=== PATIENT | female | born 1950 | race African-American/Black ===

== ENCOUNTER 2017-11-04 04:46 | Observation (INO) | payer MEDICARE, SELFPAY ==
[2017-11-04] VITALS (13 sets, daily range): BP systolic 91–150; BP diastolic 60–97; PULSE 64–94; RESP 16–20; TEMP 36.5–36.8; O2SAT 96–99; BMI 31.1; BMI 29.8
--- NOTE | 2017-11-04 04:59 | RAD_ITS ---
STUDY: X-RAY CHEST REASON FOR EXAM: Female, 66 years old. Near syncope. TECHNIQUE: Two AP portable views of the chest. COMPARISON: Prior comparison studies are not available for review at this time. FINDINGS: Cardiac monitoring leads are present. There is mild elevation of the right hemidiaphragm. The lungs are underexpanded otherwise. There is no demonstrated pleural abnormality. Normal size heart. Normal mediastinum and danisha. Normal visualized pulmonary arteries. There is atherosclerotic calcification of the aortic arch with tortuosity. There are diffuse degenerative changes of the visualized thoracic spine. There are degenerative changes of both shoulders. There is no demonstrated abnormality of the visualized soft tissue structures of the upper abdomen. RAD/Chest 1 View (Portable) IMPRESSION: No radiographic evidence of acute cardiopulmonary disease. Electronically Signed: Zoë Maravilla MD at 5:54 EDT , Service support ,
--- NOTE | 2017-11-04 05:00 | CT_ITS ---
STUDY: CT ABDOMEN AND PELVIS WITHOUT CONTRAST REASON FOR EXAM: Female, 66 years old. Abdominal pain. Patient has had previous herniorrhaphies. RADIATION DOSAGE (If Supplied By Facility): CTDIvol = ( 15.28 ) mGy, DLP = ( 782.81 ) mGycm TECHNIQUE: Transaxial images were obtained from the dome of the diaphragm to the symphysis pubis without oral contrast, and without intravenous contrast. Sagittal and coronal images were reconstructed. Individualized dose optimization techniques were used for this CT. COMPARISON: None. FINDINGS: There is mild right basilar subsegmental atelectasis. Lung bases are otherwise clear. There is a calcified lingular pulmonary nodule that may represent a granuloma. No pleural effusions are visualized. The visualized portions of the heart are within normal limits. There is decreased attenuation of the liver consistent with steatosis. There are surgical clips in the gallbladder fossa consistent with a prior cholecystectomy. There are multiple benign calcified granulomata of the spleen. Normal pancreas. Normal bilateral adrenal glands. Multiple parenchymal calcifications and nonobstructing calculi measuring up to 4 mm in size. Small lucency is visible lower pole the right kidney that measures approximately 1.2 cm in size. This is attenuation of approximately 0 Hounsfield units suggesting a simple cyst. The left kidney has a cystic lesion arising from the upper pole left kidney measuring approximately 4.2 cm in greatest dimension. This is attenuation of approximately 4 Hounsfield units suggesting a simple cyst. Multiple surgical sutures are visible in the stomach suggesting patient has had previous gastric bypass surgery. Surgical sutures are visible in the small bowel that may be the result of a Hernan-en-Y. There is no evidence for dilated bowel, ascites or pneumoperitoneum. Appears to be some fecal stasis within small bowel within the left lower quadrant. This is located near the Hernan-en-Y. Stool is visible throughout the colon with scattered diverticula. There are surgical clips in the region of the appendix consistent with a prior appendectomy. Normal abdominal aorta. There is venous distention of the inferior vena cava (IVC). Normal retroperitoneum. Normal urinary bladder. There is absence of the uterus consistent with a prior hysterectomy. There is a large cystic lesion within the lower anterior abdominal wall measuring approximately 7 x 10.5 x 16 cm in size. This has attenuation of approximately 11 Hounsfield units suggesting it is cystic. There is multilevel spondylosis and degenerative disc disease of lower thoracic spine. The imaged lumbar spine has multilevel degenerative arthropathy is severe at L4-5 and L5-S1. CT/Abdomen/Pelvis without Cont IMPRESSION: 1. No CT evidence of acute intra-abdominal disease. 2. Large cystic lesion within the anterior abdominal wall may represent a large seroma. Associated infection is not excluded. 3. Status post gastric bypass surgery and Hernan-en-Y with evidence for fecal stasis within the Hernan-en-Y. 4. Cholecystectomy. 5. Renal cysts and nonobstructing right-sided renal calculi. 6. Cholecystectomy. Electronically Signed: Zoë Maravilla MD at 6:06 EDT , Service support ,
--- NOTE | 2017-11-04 05:00 | EKG12_ITS ---
Test Reason : Blood Pressure : / mmHG Vent. Rate : 087 BPM Atrial Rate : 087 BPM P-R Int : 240 ms QRS Dur : 090 ms QT Int : 364 ms P-R-T Axes : 037 -22 011 degrees QTc Int : 438 ms Sinus rhythm with 1st degree A-V block Voltage criteria for left ventricular hypertrophy Abnormal ECG Confirmed by LISA STACK, MARY ([id number]), editor book KYLER MONK ([id number]) on 11/06/2017 3:28:02 PM Referred By: KADEN Confirmed By:MARY GONZALEZ MD
--- NOTE | 2017-11-04 05:03 | ED.DCSUM_ITS ---
- ER Visit Summary Date of Service: 11/04/17 Chief Complaint: Near syncope History of Present Illness: The patient is a 66 F presenting with lightheadedness and near syncope. States this occurred last week and then again this morning. She did not completely pass out. She denies chest pain or shortness of breath. She complains of bilateral lower extremity swelling which has been ongoing for several months and has been progressively worsening. She has doubled her Lasix dose and this has not improved her symptoms. She also complains of abdominal pain. She has had previous hernia repairs. She also complains of muscle cramping in her lower legs. Physical Examination: Vitals are stable. Patient is afebrile. Alert no acute distress. HEENT exam is unremarkable. Neck is supple. Lungs are clear and equal bilaterally. Heart is regular rate and rhythm. Abdomen is soft mild diffuse tenderness Extremities symmetric lower extremity edema Skin is warm and dry. No focal neurologic deficit. Remainder of exam is unremarkable. Emergency Department Course and Treatment: EKG is sinus rate of 87. Chest x- ray shows no acute process. CBC, chemistries unremarkable. Troponin is negative. CT abdomen shows no CT evidence of acute intra-abdominal disease. Large cystic lesion within the anterior abdominal wall may represent a large seroma. Associated infection is not excluded. Status post gastric bypass surgery and Hernan-en-Y with evidence for fecal stasis within the Hernan-en-Y. Cholecystectomy. Renal cysts and nonobstructing right-sided renal calculi. Cholecystectomy. She was given Lasix IV. She continues to feel lightheaded. Will discuss with the hospitalist for observation. Disposition: Observation Impression: Near syncope, peripheral edema, abdominal wall cystic lesion This note was generated with [employer] dictation software. It may contain incorrect words, spelling, and punctuation that were not noted in review of the chart prior to signing ED Disposition - Plan for ED Patient: Chief Complaint: Syncope Referrals: Fabi Salter MD [Primary Care Provider] -
--- NOTE | 2017-11-04 05:10 | NURSING ---
NO OLD EKG TO OBTAIN
[2017-11-04 05:33] LABS: Absolute Lymphocyte Count 0.91 X10^3/ul (0.83-4.51); Absolute Neutrophil Count 4.3 X10^3/uL (2.0-7.7); Basophil# 0.01 X10^3/uL; Basophil% 0.2 % (0-1); Eosinophil# 0.03 X10^3/uL; Eosinophils% 0.5 % (0-5); Hemoglobin 12.8 g/dl (12.0-15.0); Lymphocyte # 0.91 X10^3/ul (4.0); Lymphocyte % 16.3 % (19-41); Mean Corp Hgb Conc 31.2 g/gl (32-36); Mean Corpuscular Hgb 30.3 pg (27.0-32.0); Mean Corpuscular Volume 97.2 fL (81-99); Mean Platelet Vol. 9.7 fl (6.2-12.0); Monocyte# 0.35 X10^3/uL; Monocyte% 6.3 % (0-10); Neutrophil # 4.27 X10^3/uL (2.7-7.7); Neutrophil % 76.7 % (47-70); Platelet Count 208 K/mm3 (150-450); RBC Distribution Width CV 15.8 % (11.6-14.6); RBC Distribution Width SD 56.1 fl (35.1-43.9); Red Blood Count 4.22 M/mm3 (4.2-5.4); White Blood Count 5.6 K/mm3 (4.4-11.0)
[2017-11-04 05:39] LABS: POSITIVE COUNT NO; POSITIVE DIFFERENTIAL NO; POSITIVE MORPHOLOGY NO
[2017-11-04 05:40] LABS: Anion Gap 8 (5-15); BUN 14 mg/dL (7-18); Calcium,Total 8.2 mg/dL (8.5-10.1); Chloride 110 mmol/L (98-107); Creatinine, Serum 0.74 mg/dL (0.55-1.02); EST Glomerular Filtration Rate 84 mL/min (>60); Est Glom Filt Rate - Afr Amer 101 mL/min (>60); Estimated Creatinine Clearance 51.81 ml/min; Glucose 90 mg/dL (74-106); Potassium 3.7 mmol/L (3.5-5.1); Sodium Level 144 mmol/L (136-145)
[2017-11-04] MEDS: Furosemide 40 MG/4 ML Vial IV (06:37)
--- NOTE | 2017-11-04 07:12 | HP.PCM_ITS ---
Problem List (1) Swelling of both lower extremities Status: Acute (2) Near syncope Status: Acute (3) Chest pain Status: Acute Qualifiers: Chest pain type: chest pain due to myocardial ischemia Ischemic chest pain type: stable angina pectoris Qualified Code(s): I20.8 - Other forms of angina pectoris History of Present Illness Date of Admission: 11/04/17 Chief Complaint: near syncope. chest pain. lower extremity edema The patient is a 66 year old F with a past medical history of diabetes, hypertension, chronic bilateral lower extremity edema, obesity status post gastric bypass surgery with Hernan-en-Y. She was admitted on 11/04/2017 with a complaint of near syncope. According to patient, she got up to use the bathroom and suddenly started feeling dizzy and lightheaded and so she had to sit down. It improved a bit but recurred this morning of admission and so she decided coming to the ED. She has been on Lasix for her chronic lower extremity edema. She noticed that edema had worsened recently and so she was told by her nurse practitioner to take a double dose of her Lasix every day which has been doing for the past week. She subsequently noticed that she started having near syncope and today was a second episode of near syncope in a week. She did she also complained of pressure and throbbing-like chest pain which has been going on for about a week and a half and is worsened by exertion when she works in her yard. She has had such chest pain in the past and states that she had a stress test but was told that it was negative. She denies any shortness of breath, any palpitations, any diaphoresis, and denies any falls at home. Denies any history of recent long distance travel as well. Review of systems otherwise negative. She was seen in the ED where vitals were.= Temperature of 97.9 Fahrenheit, blood pressure of 1 05/05/1976, pulse rate of 18 respiratory rate of 18 and she was saturating at 97% on room air. EKG shows sinus rhythm with heart rate of 87. Chest x-ray showed no acute process and labs were unremarkable. Troponin was negative. Been admitted to be worked up for near syncope. [] Past Medical History Allergies No Known Allergies Allergy (Verified 07/22/16 15:38) Home Medications: Ambulatory Orders Medication Instructions Recorded Cyanocobalamin (Vitamin B-12) 1,000 mcg PO DAILY 07/22/16 [Vitamin B-12] Ergocalciferol [Vitamin D] 50,000 units PO SA 07/22/16 Ferrous Sulfate [Iron] 325 mg PO DAILY 07/22/16 Furosemide [Lasix] 20 mg PO DAILY PRN PRN 07/22/16 Hydrochlorothiazide 25 mg PO DAILY 07/22/16 Latanoprost 0.005% [Xalatan 1 drop EACH EYE DAILY 07/22/16 Opthalmic] Meloxicam [Mobic] 15 mg PO DAILY 07/22/16 Metformin HCl [Glucophage] 500 mg PO BID 07/22/16 Nystatin Powder [Mycostatin Powder] 1 applic TOPICAL BID PRN PRN 07/22/16 Ondansetron [Zofran Odt] 4 mg PO Q8H PRN PRN #10 tablet 07/22/16 Potassium Chloride 20 meq PO DAILY 07/22/16 Terbinafine HCl [Lamisil] 250 mg PO DAILY 07/22/16 Docusate Sodium [Colace] 100 mg PO DAILY 11/04/17 Tizanidine HCl [Zanaflex] 4 mg PO Q8H 11/04/17 Surgical History: cholecystectomy, - - bariatric surgery (Hernan-en-Y) Psychiatric History: No pertinent psych hx Lives: Alone Smoking Status: Never smoker Alcohol: Rare Drugs: None Review of Systems Constitutional: Denies: Chills, Fever, Weight Change Eyes: Denies: Blurred vision HEENT: Denies: Head Aches, Sinus Congestion, Sinus Drainage Cardiovascular: Reports: Chest Pain - left sided, throbbing, aggravated by exertion Respiratory: Denies: Cough, Hemoptysis, Pleuritic Pain, Shortness of breath at rest, Sputum production Gastrointestinal: Denies: Abdominal Pain, Nausea, Vomiting Genitourinary: Denies: Dysuria Musculoskeletal: Reports: - - lower extremity swelling bilaterally. Denies: Joint Pain, Joint Tenderness Skin: Denies: Rash, Wounds Neurological: Denies: Numbness, Tingling, Focal weakness Psychiatric: Denies: Anxiety, Depression, Homicidal Ideations, Suicidal Ideations Hematologic/ Lymphatic: Denies: Adenopathy VTE Information - Inpt Only VTE Present on Admission: No VTE Mechan Device Prophylaxis: Knee High SOLEDAD Hose VTE Pharm Prophylaxis ordered?: Yes Patient Problems: Active and Suspected Problems Swelling of both lower extremities (Acute) Near syncope (Acute) Chest pain (Acute) - Physical Exam General: Alert, Oriented x3, Cooperative, No apparent distress HEENT: Atraumatic, PERRLA, EOMI, Normocephalic Oral: Moist Mucosa Neck: Supple, No JVD, Negative Carotid Bruits Lungs: Clear to auscultation, Normal air movement, No rhonchi, No wheeze, No rales Cardiovascular: Regular rate, Regular Rhythm, Normal S1, Normal S2, No murmurs Abdomen: Bowel Sounds Present, Soft, Non Tender, No Hepato-splenomegaly, - - has large cystic mass in the infraumbilical region;says it appeared after her gastric bypass surgery Extremities: No clubbing, No cyanosis, - - bilateral pitting edema 3+ up to the knees. No tenderness or erythema noted. Skin: No rashes, No breakdown Musculoskeletal: No Tenderness to Palpation of Joints or Extremities Lymphatic: No Cervical, Supraclavicular, or Inguinal Adenopathy Neurological: Cranial nerves II-XII grossly intact Psych/Mental Status: Normal Affect, Appropriate, Alert and oriented to time, place, person, mood and affect Vital Signs Temp Pulse Resp BP Pulse Ox 97.9 F 68 20 H 110/87 H 99 11/04/17 04:47 11/04/17 06:37 11/04/17 06:37 11/04/17 06:37 11/04/17 06:37 Oxygen Delivery Method Room Air Weight: 192 lb 10.944 oz Body Mass Index (BMI) 31.1 Laboratory Tests Past 24 Hrs 11/04/17 11/04/17 05:15 05:15 WBC 5.6 RBC 4.22 Hgb 12.8 Hct 41.0 MCV 97.2 MCH 30.3 MCHC 31.2 L RDW 15.8 H RDW Differential 56.1 H Plt Count 208 MPV 9.7 Immature Gran % (Auto) 0.000 Neut % (Auto) 76.7 H Lymph % (Auto) 16.3 L [place] % (Auto) 6.3 Eos % (Auto) 0.5 Baso % (Auto) 0.2 Absolute Neuts (auto) 4.3 Absolute Lymphs (auto) 0.91 Total Counted Not Reportable Sodium 144 Potassium 3.7 Chloride 110 H Carbon Dioxide 26.0 Anion Gap 8 BUN 14 Creatinine 0.74 Estim Creat Clear Calc 51.81 Est GFR (MDRD) Af Amer 101 Est GFR (MDRD) Non-Af 84 BUN/Creatinine Ratio 19.0 Glucose 90 Calcium 8.2 L Troponin I < 0.015 Diagnostic Data Chest X-Ray 11/04/17 04:59 IMPRESSION: No radiographic evidence of acute cardiopulmonary disease. Electronically Signed: Zoë Maravilla MD at 5:54 EDT , Service support , Abdomen/Pelvis CT 11/04/17 05:00 IMPRESSION: 1. No CT evidence of acute intra-abdominal disease. 2. Large cystic lesion within the anterior abdominal wall may represent a large seroma. Associated infection is not excluded. 3. Status post gastric bypass surgery and Hernan-en-Y with evidence for fecal stasis within the Hernan-en-Y. 4. Cholecystectomy. 5. Renal cysts and nonobstructing right-sided renal calculi. 6. Cholecystectomy. Electronically Signed: Zoë Maravilla MD at 6:06 EDT , Service support , Assessment/Plan All Active Problems Swelling of both lower extremities (Acute) Near syncope (Acute) Chest pain (Acute) 66-year-old female presenting with a complaint of near syncope and chest pain 1. Near syncope, due to probable orthostatic hypotension * has tonic bilateral lower extremity pitting edema. Was told to the dosage of Lasix by her primary care nurse practitioner. Started feeling lightheaded and dizzy and had 2 episodes of near syncope over the last week because of that. * Vitals stable. Denies any diaphoresis or palpitations. * Will admit to PCU with telemetry. * Also unremarkable and EKG showed sinus rhythm with no acute ST changes. Initial troponin was negative. * X-ray showed no acute pulmonary process. * Received 1 dose of Lasix in the ED. * Check orthostatics. * Will give gentle diuresis with IV Lasix. * Fall Precautions. * 2.Exertional Chest pain due to probable angina * says she has had left sided chest pain which is worsened by workin in her yard * Has no history of NH though she states she has had similar chest pain in the past and had stress test done which was negative several years ago. * Has a history of diabetes which makes her moderate to high risk for CAD. * Showed troponin was negative. We will cycle 1 more time. * Will get a nuclear stress test and echocardiogram * will start aspirin 81 mg daily. * 3. Diabetes mellitus: * On metformin 500 mg twice daily. Insulin sliding scale. * 4. Chronic bilateral LE pitting pedal edema * on lasix 20mg daily prn. Has increased her dosage, as mentioned in 1. * will continue PO lasix 20mg daily * SOLEDAD hose to help with edema * keep legs elevated * 5. HTN: on hydrochlorthiazide and lasix. 6. DVT Prophylaxis: Lovenox This note was generated with [employer] dictation software. It may contain incorrect words, spelling, and punctuation that were not noted in checking the note before signing. Code Visit Inpatient E&M: 96680 Init Hosp L3
[2017-11-04] MEDS: Docusate Sodium 100 MG Capsule PO (12:47)
[2017-11-04] MEDS: hydroCHLOROthiazide 25 MG Tablet PO (12:48)
[2017-11-04] MEDS: Ferrous Sulfate 325 MG Tablet PO (12:48)
[2017-11-04] MEDS: Cyanocobalamin 500 MCG Tablet 1000 MCG PO (12:49)
[2017-11-04] MEDS: Meloxicam 15 MG Tablet PO (12:49)
[2017-11-04] MEDS: tiZANidine HCl 2 MG Tablet 4 MG PO ×2 (12:50→21:59)
[2017-11-04] MEDS: Latanoprost 0.005% 1 Bottle 1 DRP EACH EYE (12:50)
--- NOTE | 2017-11-04 15:04 | CM.UR ---
Addendum entered by Jenny Valiente 11/04/17 15:10: Patient does have CPAP at home however doesn't wear it any longer. Instructed on the importance of wearing cpap nightly. Instructed how MIMI can cause additional stress on heart. States hasn't worn in many years but does still have it. Suggested she talk to her PCP about getting another titration and ensure the settings are still appropriate for her. Also doesn't currently have a sound tester for about 20 years. Hadn't needed one and hers has since . Keshia Valiente RN, CCM. Original Note: Met face to face with the patient. No needs anticipated at this time but case mgmt will remain available should any needs arise. Keshia Valiente RN, CCM.
[2017-11-04 16:45] LABS: Bedside Glucose 92 mg/dL (70-110)
--- NOTE | 2017-11-04 19:20 | STRESSREP ---
Stress Test Report Pharmacologic myocardial perfusion stress test. 66-year-old lady with a history of chest discomfort. Stress protocol: Resting EKG demonstrates normal sinus rhythm with a rate of 75 bpm normal intervals and noted resting blood pressure is 140/82 mmHg. 0.4 mg of regadenoson was infused per usual protocol followed by rapid intravenous saline flush injection. Continuous EKG monitoring was performed. The patient maintained sinus rhythm throughout the recording. The maximum heart rate attained was 98 beats minute which was 63% of maximum predicted heart rate the maximum workload attained was 1 metabolic equivalent. At rest there were no ST or T-wave changes noted suggest abnormal flow reserve at peak infusion no ST or T-wave changes were noted suggest abnormal flow reserve. No clinical angina was noted. Myocardial perfusion protocol. 13.6 mCi of technetium 99m sestamibi was injected at rest. 0.4 mg of regadenoson was infused per usual protocol. Peak infusion 39.7 mCi of technetium 99m sestamibi was injected stress images were obtained stress and rest images were reconstructed and compared in the short axis vertical long and horizontal long axis. Gated images were also obtained. Perfusion SPECT analysis. Review of the stress images demonstrate normal uptake of tracer noted in all areas of the myocardium there was a small portion of the anterior apical wall with mildly reduced perfusion. This was present on the stress and rest images to a similar extent no reversibility was noted suggest ischemia or previous infarct cannot be completely excluded. Gated SPECT analysis: The gated ejection fraction is noted to be 66%. Conclusion: Normal pharmacologic myocardial perfusion stress test. Previous small anterior apical infarct cannot be completely excluded.
[2017-11-04] MEDS: 0.9% NaCl Peripheral Flush Adult/Peds IV (21:59)
[2017-11-04 22:21] LABS: Bedside Glucose 71 mg/dL (70-110)
[2017-11-05 03:00] VITALS: PULSE 78
[2017-11-05 03:50] VITALS: BP 104/75; BP 105/71; BP 114/69; PULSE 74; PULSE 76; RESP 16; TEMP 36.7; O2SAT 96
[2017-11-05] MEDS: tiZANidine HCl 2 MG Tablet 4 MG PO (05:22)
[2017-11-05 06:45] LABS: Absolute Lymphocyte Count 0.93 X10^3/ul (0.83-4.51); Basophil# 0.01 X10^3/uL; Basophil% 0.3 % (0-1); Eosinophil# 0.03 X10^3/uL; Eosinophils% 0.9 % (0-5); Hematocrit 36.1 % (37-47); Hemoglobin 11.6 g/dl (12.0-15.0); Lymphocyte # 0.93 X10^3/ul (4.0); Lymphocyte % 29.2 % (19-41); Mean Corp Hgb Conc 32.1 g/gl (32-36); Mean Corpuscular Hgb 30.5 pg (27.0-32.0); Mean Platelet Vol. 9.9 fl (6.2-12.0); Monocyte# 0.23 X10^3/uL; Monocyte% 7.2 % (0-10); Neutrophil # 1.99 X10^3/uL (2.7-7.7); Neutrophil % 62.4 % (47-70); Platelet Count 191 K/mm3 (150-450); RBC Distribution Width CV 15.8 % (11.6-14.6); RBC Distribution Width SD 54.9 fl (35.1-43.9); White Blood Count 3.2 K/mm3 (4.4-11.0)
[2017-11-05 06:45] LABS: Bedside Glucose 76 mg/dL (70-110)
[2017-11-05 06:51] LABS: Bedside Glucose 118 mg/dL (70-110)
[2017-11-05 07:00] VITALS: PULSE 79
[2017-11-05 07:04] LABS: Anion Gap 6 (5-15); BUN 14 mg/dL (7-18); BUN/Creat Ratio 21.1 RATIO (10-20); Calcium,Total 8.2 mg/dL (8.5-10.1); Chloride 108 mmol/L (98-107); Creatinine, Serum 0.66 mg/dL (0.55-1.02); EST Glomerular Filtration Rate 94 mL/min (>60); Est Glom Filt Rate - Afr Amer 114 mL/min (>60); Estimated Creatinine Clearance 51.81 ml/min; Glucose 121 mg/dL (74-106); Sodium Level 140 mmol/L (136-145)
[2017-11-05 07:05] LABS: POSITIVE COUNT NO; POSITIVE DIFFERENTIAL NO; POSITIVE MORPHOLOGY NO
[2017-11-05 07:06] VITALS: O2SAT 92
[2017-11-05] MEDS: Ferrous Sulfate 325 MG Tablet PO (08:53)
[2017-11-05] MEDS: Aspirin 81 MG TAB.CHEW PO (08:54)
[2017-11-05 09:50] VITALS: BP 100/63; PULSE 71; RESP 18; TEMP 36.7; O2SAT 94
[2017-11-05] MEDS: Enoxaparin 40 MG/0.4 ML Syringe SC (10:31)
[2017-11-05] MEDS: hydroCHLOROthiazide 25 MG Tablet PO (10:31)
[2017-11-05] MEDS: Docusate Sodium 100 MG Capsule PO (10:31)
[2017-11-05] MEDS: Latanoprost 0.005% 1 Bottle 1 DRP EACH EYE (10:32)
[2017-11-05] MEDS: Cyanocobalamin 500 MCG Tablet 1000 MCG PO (10:32)
[2017-11-05] MEDS: Meloxicam 15 MG Tablet PO (10:32)
--- NOTE | 2017-11-05 11:16 | PCM.DC ---
- Discharge Diagnoses Current Active Problems: Current Active and Chronic Problems Swelling of both lower extremities (Acute) Near syncope (Acute) Chest pain (Acute) You will use the following diet at home:: Calorie/Carbohydrate Controlled (specify 1200, 1400, etc) Your food should be the consistency of: Regular Your liquids should be the consistency of: Regular/Thin Discharge Activity: Return to Normal Activity May resume sexual activity in: No Restrictions Weight Bearing Status: Weight bearing as tolerated Call your doctor if you observe: Dizziness, Fainting spells Instructions: ED Near Syncope Unkn, ED Near Syncope Vasovagal, ED Leg Swelling Bilateral Additional Instructions: To do 2D echo on outpatient basis Allergies/Adverse Reactions: Allergies No Known Allergies Allergy (Verified 07/22/16 15:38) Medications to take at Discharge Cyanocobalamin (Vitamin B-12) [Vitamin B-12] 1,000 mcg PO DAILY 07/22/16 Ergocalciferol [Vitamin D] 50,000 units PO SA 07/22/16 Ferrous Sulfate [Iron] 325 mg PO DAILY 07/22/16 Furosemide [Lasix] 20 mg PO DAILY PRN PRN 07/22/16 Hydrochlorothiazide 25 mg PO DAILY 07/22/16 Latanoprost 0.005% [Xalatan Opthalmic] 1 drop EACH EYE DAILY 07/22/16 Meloxicam [Mobic] 15 mg PO DAILY 07/22/16 Metformin HCl [Glucophage] 500 mg PO BID 07/22/16 Nystatin Powder [Mycostatin Powder] 1 applic TOPICAL BID PRN PRN 07/22/16 Ondansetron [Zofran Odt] 4 mg PO Q8H PRN PRN #10 tablet 07/22/16 Potassium Chloride 20 meq PO DAILY 07/22/16 Terbinafine HCl [Lamisil] 250 mg PO DAILY 07/22/16 Docusate Sodium [Colace] 100 mg PO DAILY 11/04/17 Tizanidine HCl [Zanaflex] 4 mg PO Q8H 11/04/17 Aspirin [Aspirin, Baby] 81 mg PO DAILY@0800 #30 tab.chew 11/05/17 The following prescriptions were given: Aspirin [Aspirin, Baby] 81 mg PO DAILY@0800 #30 tab.chew Primary Care Physician: Fabi Salter MD [Primary Care Provider] - Please follow up with your Primary Care Physician in: one week Test Results: Test results from this visit will be discussed in further detail at your follow-up appointment, if applicable. Proposed Discharge Date: 11/05/17
--- NOTE | 2017-11-05 11:20 | DCINST_ITS ---
- Discharge Diagnoses Current Active Problems: Current Active and Chronic Problems Swelling of both lower extremities (Acute) Near syncope (Acute) Chest pain (Acute) You will use the following diet at home:: Calorie/Carbohydrate Controlled ( specify 1200, 1400, etc) Your food should be the consistency of: Regular Your liquids should be the consistency of: Regular/Thin Discharge Activity: Return to Normal Activity May resume sexual activity in: No Restrictions Weight Bearing Status: Weight bearing as tolerated Call your doctor if you observe: Dizziness, Fainting spells Instructions: ED Near Syncope Unkn, ED Near Syncope Vasovagal, ED Leg Swelling Bilateral Additional Instructions: To do 2D echo on outpatient basis Allergies/Adverse Reactions: Allergies No Known Allergies Allergy (Verified 07/22/16 15:38) Medications to take at Discharge Cyanocobalamin (Vitamin B-12) [Vitamin B-12] 1,000 mcg PO DAILY 07/22/16 Ergocalciferol [Vitamin D] 50,000 units PO SA 07/22/16 Ferrous Sulfate [Iron] 325 mg PO DAILY 07/22/16 Furosemide [Lasix] 20 mg PO DAILY PRN PRN 07/22/16 Hydrochlorothiazide 25 mg PO DAILY 07/22/16 Latanoprost 0.005% [Xalatan Opthalmic] 1 drop EACH EYE DAILY 07/22/16 Meloxicam [Mobic] 15 mg PO DAILY 07/22/16 Metformin HCl [Glucophage] 500 mg PO BID 07/22/16 Nystatin Powder [Mycostatin Powder] 1 applic TOPICAL BID PRN PRN 07/22/16 Ondansetron [Zofran Odt] 4 mg PO Q8H PRN PRN #10 tablet 07/22/16 Potassium Chloride 20 meq PO DAILY 07/22/16 Terbinafine HCl [Lamisil] 250 mg PO DAILY 07/22/16 Docusate Sodium [Colace] 100 mg PO DAILY 11/04/17 Tizanidine HCl [Zanaflex] 4 mg PO Q8H 11/04/17 Aspirin [Aspirin, Baby] 81 mg PO DAILY@0800 #30 tab.chew 11/05/17 The following prescriptions were given: Aspirin [Aspirin, Baby] 81 mg PO DAILY@0800 #30 tab.chew Primary Care Physician: Fabi Slater MD [Primary Care Provider] - Please follow up with your Primary Care Physician in: one week Test Results: Test results from this visit will be discussed in further detail at your follow- up appointment, if applicable. Proposed Discharge Date: 11/05/17
--- NOTE | 2017-11-05 11:21 | PCM.DC.SUM ---
Discharge Date and Diagnosis - Problem List Patient Problems: Active and Suspected Problems Swelling of both lower extremities (Acute) Near syncope (Acute) Chest pain (Acute) Date of Admission: 11/04/17 Date of Discharge: 11/05/17 - Primary Discharge Diagnosis Active and Suspected Problems Swelling of both lower extremities (Acute) Near syncope (Acute) Chest pain (Acute) Hospital Course and Treatment Imaging Results: Diagnostic Data Chest X-Ray 11/04/17 04:59 IMPRESSION: No radiographic evidence of acute cardiopulmonary disease. Electronically Signed: Zoë Maravilla MD at 5:54 EDT , Service support , Abdomen/Pelvis CT 11/04/17 05:00 IMPRESSION: 1. No CT evidence of acute intra-abdominal disease. 2. Large cystic lesion within the anterior abdominal wall may represent a large seroma. Associated infection is not excluded. 3. Status post gastric bypass surgery and Hernan-en-Y with evidence for fecal stasis within the Hernan-en-Y. 4. Cholecystectomy. 5. Renal cysts and nonobstructing right-sided renal calculi. 6. Cholecystectomy. Electronically Signed: Zoë Maravilla MD at 6:06 EDT , Service support , Laboratory Tests 11/04/17 11/04/17 11/04/17 05:15 05:15 14:15 WBC 5.6 RBC 4.22 Hgb 12.8 Hct 41.0 MCV 97.2 MCH 30.3 MCHC 31.2 L RDW 15.8 H RDW Differential 56.1 H Plt Count 208 MPV 9.7 Immature Gran % (Auto) 0.000 Neut % (Auto) 76.7 H Lymph % (Auto) 16.3 L Harrison % (Auto) 6.3 Eos % (Auto) 0.5 Baso % (Auto) 0.2 Absolute Neuts (auto) 4.3 Absolute Lymphs (auto) 0.91 Total Counted Not Reportable Sodium 144 Potassium 3.7 Chloride 110 H Carbon Dioxide 26.0 Anion Gap 8 BUN 14 Creatinine 0.74 Estim Creat Clear Calc 51.81 Est GFR (MDRD) Af Amer 101 Est GFR (MDRD) Non-Af 84 BUN/Creatinine Ratio 19.0 Glucose 90 Calcium 8.2 L Troponin I < 0.015 < 0.015 POC Glucose 11/04/17 11/04/17 11/05/17 16:26 21:54 03:49 WBC RBC Hgb Hct MCV MCH MCHC RDW RDW Differential Plt Count MPV Immature Gran % (Auto) Neut % (Auto) Lymph % (Auto) Harrison % (Auto) Eos % (Auto) Baso % (Auto) Absolute Neuts (auto) Absolute Lymphs (auto) Total Counted Sodium Potassium Chloride Carbon Dioxide Anion Gap BUN Creatinine Estim Creat Clear Calc Est GFR (MDRD) Af Amer Est GFR (MDRD) Non-Af BUN/Creatinine Ratio Glucose Calcium Troponin I POC Glucose 92 71 76 11/05/17 11/05/17 11/05/17 06:28 06:28 06:44 WBC 3.2 L RBC 3.80 L Hgb 11.6 L Hct 36.1 L MCV 95.0 MCH 30.5 MCHC 32.1 RDW 15.8 H RDW Differential 54.9 H Plt Count 191 MPV 9.9 Immature Gran % (Auto) 0.000 Neut % (Auto) 62.4 Lymph % (Auto) 29.2 Harrison % (Auto) 7.2 Eos % (Auto) 0.9 Baso % (Auto) 0.3 Absolute Neuts (auto) 2.0 Absolute Lymphs (auto) 0.93 Total Counted Not Reportable Sodium 140 Potassium 4.0 Chloride 108 H Carbon Dioxide 26.0 Anion Gap 6 BUN 14 Creatinine 0.66 Estim Creat Clear Calc 51.81 Est GFR (MDRD) Af Amer 114 Est GFR (MDRD) Non-Af 94 BUN/Creatinine Ratio 21.1 H Glucose 121 H Calcium 8.2 L Troponin I POC Glucose 118 H Operations: None Procedures: Nuclear stress test Summary of Care Provided: The patient is a 66 year old F with a past medical history of diabetes, hypertension, chronic bilateral lower extremity edema, obesity status post gastric bypass surgery with Hernan-en-Y. She was admitted on 11/04/2017 with a complaint of near syncope. According to patient, she got up to use the bathroom and suddenly started feeling dizzy and lightheaded and so she had to sit down. She has been on Lasix for her chronic lower extremity edema. She noticed that edema had worsened recently and so she was told by her nurse practitioner to take a double dose of her Lasix every day which has been doing for the past week. near suncope started after she doubled her dose of lasix. She did she also complained of pressure and throbbing-like chest pain which has been going on for about a week and a half and is worsened by exertion when she works in her yard. She has had such chest pain in the past and states that she had a stress test but was told that it was negative. She denies any shortness of breath, any palpitations, any diaphoresis, and denies any falls at home. Denies any history of recent long distance travel as well. Review of systems otherwise negative. She was seen in the ED where vitals were.Temperature of 97.9 Fahrenheit, blood pressure of 05/05/1976, pulse rate of 18 respiratory rate of 18 and she was saturating at 97% on room air. EKG shows sinus rhythm with heart rate of [address] changes. Chest x-ray showed no acute process and labs were unremarkable. Troponins x 2 were negative. She was admitted and managed for near syncope and atypical chest pain. Stress test done was negative. She was supposed to have a 2D echo, but didnt want to stay till Monday for it. She remained stable, and was dced home on 11/05/17. She was counselled strongly to continue taking her regular lasix dose and not increase it arbitrarily. She was prescribed TAY stockings to help with edema. She is to follow up with her PCP. Patient seen and examined this morning. She felt well and had no complaitns. She was able to ambulate on her own without any dizziness or any chest pain. Review of systems was othewise negative. o/E: well looking female, alert and oriented x 2 HEENT: PEERLA, oral mucosa moist, EOMI Lungs: clear to auscultation CVS: normal S1/S2, no murmurs Abdomen; soft, nontender, no organomegaly, cystic mass in lower abdomen Extremities: bilateral 1+ pitting pedal edema Neuro: cranial nerves II-Xii intact, normal power and tone in all extremities. MSk: no tenderness or swelling Skin: no rash or ulcers Assessment and plan: Nearsyncope: resolved. Atypical chest pain: resolved. Stress test negative. To have 2D echo on outpatient basis. Bilateral LE edema: TAY hose stockings. continue PO lasix 20mg daily. To follow up with PCP in one week. Discharge Diet: Low fat/ Low Cholesterol Discharge Activity: Return to Normal Activity May resume sexual activity in: No Restrictions Weight Bearing Status: Weight bearing as tolerated Call your doctor if you observe: Dizziness, Fainting spells Home Medications: Medications to take at Discharge Cyanocobalamin (Vitamin B-12) [Vitamin B-12] 1,000 mcg PO DAILY 07/22/16 Ergocalciferol [Vitamin D] 50,000 units PO SA 07/22/16 Ferrous Sulfate [Iron] 325 mg PO DAILY 07/22/16 Furosemide [Lasix] 20 mg PO DAILY PRN PRN 07/22/16 Hydrochlorothiazide 25 mg PO DAILY 07/22/16 Latanoprost 0.005% [Xalatan Opthalmic] 1 drop EACH EYE DAILY 07/22/16 Meloxicam [Mobic] 15 mg PO DAILY 07/22/16 Metformin HCl [Glucophage] 500 mg PO BID 07/22/16 Nystatin Powder [Mycostatin Powder] 1 applic TOPICAL BID PRN PRN 07/22/16 Ondansetron [Zofran Odt] 4 mg PO Q8H PRN PRN #10 tablet 07/22/16 Potassium Chloride 20 meq PO DAILY 07/22/16 Terbinafine HCl [Lamisil] 250 mg PO DAILY 07/22/16 Docusate Sodium [Colace] 100 mg PO DAILY 11/04/17 Tizanidine HCl [Zanaflex] 4 mg PO Q8H 11/04/17 Aspirin [Aspirin, Baby] 81 mg PO DAILY@0800 #30 tab.chew 11/05/17 Following Prescrptions Were Given to Patient: Aspirin [Aspirin, Baby] 81 mg PO DAILY@0800 #30 tab.chew Other Amb Orders: Knee High Tay Hose Location: None Selected Primary Care Physician: Fabi Salter MD [Primary Care Provider] - Please follow up with your Primary Care Physician in: one week Patient Instructions: ED Leg Swelling Bilateral, ED Near Syncope Unkn, ED Near Syncope Vasovagal Disposition: Home Minutes spent on discharge:: 35 Patient Condition:: Good Medical Necessity - Tobacco Use Smoking Status: Never smoker Meaningful Use Info Meaningful Use Diagnoses (Choose all that apply): None applicable Code Visit Inpatient E&M: 87213 Disch Hosp
[2017-11-05 12:05] LABS: Bedside Glucose 89 mg/dL (70-110)
== END 2017-11-05 13:10 | disposition home or self-care (01) ==
LOC: ED 05:41 → PCU 07:23
PROVIDERS: Admitting Provider Student in an Organized Health Care Education/Training Program; Emergency Provider Emergency Medicine; Family Provider Internal Medicine; PCP Internal Medicine; Visit Provider Student in an Organized Health Care Education/Training Program
DX: R55 Syncope and collapse (principal); M79.89 Other specified soft tissue disorders; Z98.84 Bariatric surgery status; I10 Essential (primary) hypertension; E11.9 Type 2 diabetes mellitus without complications; E66.9 Obesity, unspecified; Z68.29 Body mass index [BMI] 29.0-29.9, adult; Z71.3 Dietary counseling and surveillance; R07.89 Other chest pain
CPT/HCPCS: 36415; 71045; 74176; 78452; 80048; 82962; 84484; 85025; 93005; 93017; 96372; 96374; 99218; 99283; A9500; A4216; G0378; J1940; J2785

== ENCOUNTER → 2021-03-26 12:55 | Outpatient (CLI) | payer MEDICARE, SELFPAY ==
[2021-03-26 13:41] LABS: CREATININE FINGERSTICK 0.8 mg/dL (0.55-1.02); EGFR FINGERSTICK > 60.0000 mL/min (>60)
--- NOTE | 2021-03-26 13:50 | MRI_ITS ---
STUDY: MRI ORBITS WITH AND WITHOUT CONTRAST REASON FOR EXAM: Female, 70 years old. HETERONYMOUS BILATERAL FIELD DEFECTS;R/O PITUITARY/OPTIC LESION -- ORBITS TECHNIQUE: Standardized fat and water weighted pulse sequences were obtained in all 3 orthogonal planes, pre-and post contrast administration. IV 17mL Doatarem was administered for the contrast portion of the examination. COMPARISON: None. FINDINGS: Orbital contents are normal. Optic nerves are atrophic bilaterally without focal lesions or inflammation. Suprasellar cistern is clear. 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 Brain is normal. MRI/Orbit Face Neck W/WO Contrast IMPRESSION: 1. 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 2. Normal suprasellar cistern. 3. Normal brain. 4. 5 mm pituitary lesion, probably cystic. Endocrinologic evaluation advised. Further imaging recommendations will be based on results of laboratory parameters and may not be needed. Electronically Signed: Dagmar Ruelas MD at 20:05 EST Tel , Service support ,
== END ==
PROVIDERS: PCP Internal Medicine; Referring Provider Ophthalmology; Visit Provider Ophthalmology
DX: Z01.812 Encounter for preprocedural laboratory examination (principal); H53.47 Heteronymous bilateral field defects
CPT/HCPCS: 70543; A9575

== ENCOUNTER → 2021-04-09 15:29 | Outpatient (CLI) | payer MEDICARE, SELFPAY ==
[2021-04-09 17:10] LABS: ALB/GLOB Ratio 0.9 RATIO (0.9-2.4); AST(SGOT) 31 U/L (15-37); Alanine Aminotransfer ALT/SGPT 49 U/L (13-56); Albumin, Serum 3.2 g/dL (3.2-5.0); Alkaline Phosphatase 184 U/L (45-117); Anion Gap 5 (5-15); BUN 16 mg/dL (7-18); BUN/Creat Ratio 23.9 RATIO (10-20); Calcium,Total 9.1 mg/dL (8.5-10.1); Chloride 111 mmol/L (98-107); Creatinine, Serum 0.67 mg/dL (0.55-1.02); EST Glomerular Filtration Rate 92 mL/min (>60); Est Glom Filt Rate - Afr Amer 112 mL/min (>60); Follicle Stimulating Hormone 50.9 mIU/mL; Free T3 2.1 pg/mL (2.18-3.98); Globulin 3.7 g/dL (2.2-4.2); Glucose 88 mg/dL (74-106); Potassium 3.7 mmol/L (3.5-5.1); Prolactin 5.9 ng/mL; Protein, Total 6.9 g/dL (6.4-8.2); Sodium Level 142 mmol/L (136-145); T4 Free Direct 0.87 ng/dL (0.76-1.46); Thyroid Stim Hormone (TSH) 1.17 uIU/mL (0.358-3.74)
[2021-04-15 11:09] LABS: DHEA Sulfate 39.9 ug/dL (20.4-186.6); Testosterone, % Free 0.85 % (0.50-2.80); Testosterone, Free 0.56 ng/dL (0.10-0.85); Testosterone, Total 66 ng/dL (3-67)
[2021-04-15 12:01] LABS: Insulin Like Growth Factor 122 ng/mL (52-196)
== END ==
PROVIDERS: PCP Internal Medicine; Referring Provider Internal Medicine Endocrinology, Diabetes & Metabolism; Visit Provider Internal Medicine Endocrinology, Diabetes & Metabolism
DX: E23.6 Other disorders of pituitary gland (principal); E23.7 Disorder of pituitary gland, unspecified; L68.0 Hirsutism; E04.2 Nontoxic multinodular goiter
CPT/HCPCS: 36415; 80053; 82024; 82533; 82627; 83001; 83002; 84146; 84305; 84402; 84403; 84439; 84443; 84481; 82626

== ENCOUNTER 2022-10-11 17:01 | Emergency (ER) | payer MEDICARE, SELFPAY ==
[2022-10-11 17:02] VITALS: BP 160/114; PULSE 85; RESP 18; TEMP 36.7; O2SAT 100; BMI 34.2
--- NOTE | 2022-10-11 17:40 | RAD_ITS ---
STUDY: X-RAY CHEST REASON FOR EXAM: Female, 71 years old. back TECHNIQUE: Single frontal view of the chest. COMPARISON: November 04, 2017. FINDINGS: Elevated right hemidiaphragm. Left lower lobe calcified granuloma appears stable. The lungs are clear and expanded. There is no demonstrated pleural abnormality. Normal size heart. Normal mediastinum and danisha. Normal visualized pulmonary arteries. Normal visualized aortic arch and descending thoracic aorta. Normal visualized thoracic spine. Normal visualized ribs, clavicles, and shoulders. There is no demonstrated abnormality of the visualized soft tissue structures of the upper abdomen. RAD/Chest 1 View IMPRESSION: No acute disease Electronically Signed: Pierre Santiago MD at 18:21 EDT ,
[2022-10-11 18:25] LABS: Absolute Neutrophil Count 2.8 X10^3/uL (2.0-7.7); Basophil# 0.01 X10^3/uL; Basophil% 0.2 % (0-1); Eosinophil# 0.03 X10^3/uL; Eosinophils% 0.7 % (0-5); Hematocrit 34.6 % (37-47); Hemoglobin 10.9 g/dL (12.0-15.0); Lymphocyte % 24.6 % (19-41); Mean Corp Hgb Conc 31.5 g/dL (32-36); Mean Corpuscular Volume 101.5 fL (81-99); Mean Platelet Vol. 10.5 fl (6.2-12.0); Monocyte# 0.54 X10^3/uL; Monocyte% 12.1 % (0-10); NRBC Flagged by Analyzer 0 % (0-5); Neutrophil # 2.78 X10^3/uL (2.7-7.7); Neutrophil % 62.2 % (47-70); Platelet Count 171 K/mm3 (150-450); RBC Distribution Width CV 16.8 % (11.6-14.6); RBC Distribution Width SD 62.9 fl (35.1-43.9); Red Blood Count 3.41 M/mm3 (4.2-5.4); White Blood Count 4.5 K/mm3 (4.4-11.0)
--- NOTE | 2022-10-11 18:42 | EX.ED.DYSGE1 ---
HPI History of Present Illness Chief Complaint: Edema Narrative Narrative: Patient presents with bilateral lower extremity edema. This is chronic and recurrent she was on her Lasix she decreased it for a few days but now she is back to normal dose. She has no redness she has no fevers or chills she has no chest pain or shortness of breath. [facility] Medical History (Updated 10/11/22 @ 18:[address] Hakan Mcrae MD) B12 deficiency Diabetes Hirsutism Hypertension Osteoarthritis Pituitary mass Vitamin D deficiency Home Medications Terbinafine Hcl [Lamisil] 250 mg PO DAILY athletes foot 07/22/16 [History Last Taken 07/22/16] cyanocobalamin (vitamin B-12) 1,000 mcg tablet (Vitamin B-12) 1,000 mcg PO DAILY multivitamin 07/22/16 [History Last Taken 11/03/17] ergocalciferol (vitamin D2) 1,250 mcg (50,000 unit) capsule (Vitamin D2) 50,000 units PO SA vitamin 07/22/16 [History Last Taken 10/28/17] ferrous sulfate 325 mg (65 mg iron) tablet (Iron (ferrous sulfate)) 325 mg PO DAILY supplement 07/22/16 [History Last Taken 11/04/17] furosemide 20 mg tablet 20 mg PO DAILY PRN PRN Swelling 07/22/16 [History Last Taken 11/02/17] hydrochlorothiazide 12.5 mg capsule 25 mg PO DAILY swelling 07/22/16 [History Last Taken 11/03/17] latanoprost 0.005 % eye drops 1 drp DAILY eye health 07/22/16 [History Last Taken 11/03/17] meloxicam 15 mg tablet (Mobic) 15 mg PO DAILY pain 07/22/16 [History Last Taken 11/03/17] metformin 500 mg tablet (Glucophage) 500 mg PO BID diabetes 07/22/16 [History Last Taken 11/03/17] nystatin 100,000 unit/gram topical powder (Nyamyc) 1 applic topical BID PRN PRN IRRITATION 07/22/16 [History Last Taken Unknown] ondansetron 4 mg disintegrating tablet 4 mg PO Q8H PRN PRN Nausea #10 tabs 07/22/16 [Rx Last Taken Unknown] potassium chloride 20 mEq tablet,extended release(part/cryst) 20 meq PO DAILY supplement 07/22/16 [History Last Taken 07/22/16] docusate sodium 100 mg capsule (DOK) 100 mg PO DAILY stool softner 11/04/17 [History Last Taken 11/03/17] tizanidine 4 mg tablet (Zanaflex) 4 mg PO Q8H muscle spasm 11/04/17 [History Last Taken Unknown] aspirin 81 mg chewable tablet 81 mg PO DAILY@0800 ##30 11/05/17 [Rx Last Taken Unknown] cholestyramine (with sugar) 4 gram powder for susp in a packet ea PO 04/09/21 [History Last Taken Unknown] dorzolamide 22.3 mg-timolol 6.8 mg/mL eye drops 1 drp ophthalmic (eye) 04/09/21 [History Last Taken Unknown] famotidine 20 mg tablet 20 mg PO 04/09/21 [History Last Taken Unknown] fluticasone propionate 50 mcg/actuation nasal spray,suspension gm intranasal 04/09/21 [History Last Taken Unknown] Allergy/AdvReac Type Severity Reaction Status Date / Time No Known Allergies Allergy Verified 04/09/21 15:08 Family History Other Diabetes Hypertension Kidney disease Surgical History (Updated 10/11/22 @ 17:19 by Claire Love) H/O bariatric surgery Total knee replacement status Social History Smoking Status: Never smoker ROS ROS ED ROS Narrative Past medical history: Reviewed Medications: Reviewed Social history: Noncontributory Review of systems: All systems negative except as indicated General: No fever Eyes: No visual changes ENT: No upper airway congestion, normal voice Neck: No neck pain Cardiovascular: No chest pain Respiratory: No shortness of breath or cough Gastrointestinal: No abdominal pain, nausea vomiting or diarrhea Genitourinary: No dysuria Musculoskeletal: Lower extremity edema Skin: No rash Neurological: No memory loss, confusion or any focal weakness Psych: No recent behavioral changes Hematologic: No easy bleeding or easy bruising EXAM Physical Exam Narrative Exam Narrative: Physical exam General: Well nourished, Well developed, No Acute Distress Head: Normocephalic, Atraumatic Eyes: Conjunctiva not pale ENT: Moist mucous membranes Neck: Supple, Nontender, No lymphadenopathy Cardiovascular: Regular rate, Regular rhythm Respiratory: No distress, CTA bilaterally Abdomen: Soft, Nontender, Nondistended Back: Nontender, Normal Inspection. Negative for: CVA tenderness Extremities: She has symmetric bilateral lower extremity edema, no erythema or calor or any signs of infection. Skin: Normal color, No rash Neurological: Alert, Normal Strength, Normal Sensation Const Vital Signs: 10/11/22 17:02 Temperature 98.1 F Temperature Source Temporal Pulse Rate 85 Respiratory Rate 18 Blood Pressure 160/114 H Blood Pressure Mean 129 Pulse Ox 100 Oxygen Delivery Method Room Air MDM MDM MDM Narrative Medical decision making narrative: Chest x-ray interpreted by me does not show any signs of CHF. It is normal. MDM: Patient's work-up is unremarkable, she does have some hypoalbuminemia, but otherwise no other reasons for her edema, it is likely secondary to venous insufficiency or lymphedema. There is no evidence of infection at this time both on blood work and clinically. I do not believe x-rays of the feet are warranted. Since it symmetric chronic edema ultrasound is not warranted. I talked to her son who was also provided history, at this time there is no indication for admission, she is on Lasix at home which she can continue I will give her dose of Lasix in the ED. She is having customized stockings made. Otherwise I will discharge her in stable condition. She does not meet admission criteria. Lab Data Labs: Laboratory Results - last 24 hr 10/11/22 10/11/22 18:18 18:18 WBC 4.5 RBC 3.41 L Hgb 10.9 L Hct 34.6 L MCV 101.5 H MCH 32.0 MCHC 31.5 L RDW Std Deviation 62.9 H RDW Coeff of Surjit 16.8 H Plt Count 171 MPV 10.5 Immature Gran % (Auto) 0.200 Neut % (Auto) 62.2 Lymph % (Auto) 24.6 Clinch % (Auto) 12.1 H Eos % (Auto) 0.7 Baso % (Auto) 0.2 Absolute Neuts (auto) 2.8 Absolute Lymphs (auto) 1.10 Nucleated RBC % 0 Sodium 144 Potassium 3.8 Chloride 114 H Carbon Dioxide 25.0 Anion Gap 5 BUN 20 H Creatinine 0.95 Estim Creat Clear Calc 46.90 Est GFR (MDRD) Af Amer 74 Est GFR (MDRD) Non-Af 61 BUN/Creatinine Ratio 21.0 H Glucose 86 Calcium 8.4 L Total Bilirubin 0.30 AST 42 H ALT 88 H Alkaline Phosphatase 185 H Total Protein 4.9 L Albumin 2.2 L Globulin 2.7 Albumin/Globulin Ratio 0.8 L Radiography Diagnostic Testing: Clinical Impression(s) from Imaging Studies Chest X-Ray 10/11/22 17:40 IMPRESSION: No acute disease Electronically Signed: Pierre Santiago MD at 18:21 EDT Reading Location ID and State: [address] [place] [address] , Service support , Discharge Plan Triage Chief Complaint: Edema Other Complaint: Abd Pain Fall ED Provider: Hakan Mcrae Dx/Rx/DC Orders Clinical Impression: Edema, Hypoalbuminemia Instructions: ED Lymphedema Prescriptions: No Action dorzolamide-timolol 22.3-6.8 mg/mL drops 1 drp ophthalmic (eye) cholestyramine (with sugar) 4 gram powder in packet PO fluticasone propionate 50 mcg/actuation spray,suspension intranasal famotidine 20 mg tablet 20 mg PO cyanocobalamin (vitamin B-12) [Vitamin B-12] 1,000 MCG tablet 1,000 mcg PO DAILY Label Comments: SUPPLEMENT latanoprost 1 DROP bottle 1 drp Each Eye DAILY Label Comments: EYE HEALTH metformin [Glucophage] 500 MG tablet 500 mg PO BID Label Comments: BLOOD SUGAR meloxicam [Mobic] 15 MG tablet 15 mg PO DAILY potassium chloride 20 MEQ tablet,ER particles/crystals 20 meq PO DAILY Label Comments: SUPPLEMENT ferrous sulfate [Iron (ferrous sulfate)] 325 MG tablet 325 mg PO DAILY Label Comments: SUPPLEMENT hydrochlorothiazide 12.5 MG capsule 25 mg PO DAILY Label Comments: BLOOD PRESSURE, WATER PILL furosemide 20 MG tablet 20 mg PO DAILY PRN PRN (Reason: Swelling) Label Comments: LEG SWELLING ergocalciferol (vitamin D2) [Vitamin D2] 50,000 UNIT capsule 50,000 units PO SA Label Comments: SUPPLEMENT nystatin [Nyamyc] 1 APPLIC bottle 1 applic topical BID PRN PRN (Reason: IRRITATION) Label Comments: SKIN CARE Terbinafine Hcl [Lamisil] 250 MG tablet 250 mg PO DAILY Label Comments: TOE NAIL FUNGAL INFECTION ondansetron 4 MG tablet 4 mg PO Q8H PRN PRN (Reason: Nausea) Qty: 10 0RF tizanidine [Zanaflex] 4 MG tablet 4 mg PO Q8H docusate sodium [DOK] 100 MG capsule 100 mg PO DAILY aspirin 81 MG tablet,chewable 81 mg PO DAILY@0800 Qty: 30 2RF Primary Care Provider: Fabi Salter Referrals: Fabi Salter MD [Primary Care Provider] - 3-5 Days Disposition Disposition: Home, Self Care
[2022-10-11 18:43] LABS: ALB/GLOB Ratio 0.8 RATIO (0.9-2.4); AST(SGOT) 42 U/L (15-37); Alanine Aminotransfer ALT/SGPT 88 U/L (13-56); Albumin, Serum 2.2 g/dL (3.2-5.0); Alkaline Phosphatase 185 U/L (45-117); Anion Gap 5 (5-15); BUN 20 mg/dL (7-18); Calcium,Total 8.4 mg/dL (8.5-10.1); Chloride 114 mmol/L (98-107); Creatinine, Serum 0.95 mg/dL (0.55-1.02); EST Glomerular Filtration Rate 61 mL/min (>60); Est Glom Filt Rate - Afr Amer 74 mL/min (>60); Globulin 2.7 g/dL (2.2-4.2); Glucose 86 mg/dL (74-106); Potassium 3.8 mmol/L (3.5-5.1); Protein, Total 4.9 g/dL (6.4-8.2); Sodium Level 144 mmol/L (136-145)
[2022-10-11] MEDS: Furosemide 40 MG Tablet PO (18:57)
== END 2022-10-11 19:16 | disposition home or self-care (01) ==
PROVIDERS: Emergency Provider Emergency Medicine; PCP Internal Medicine; Visit Provider Emergency Medicine
DX: R60.0 Localized edema (principal); E11.9 Type 2 diabetes mellitus without complications; E88.09 Other disorders of plasma-protein metabolism, not elsewhere classified; I10 Essential (primary) hypertension; Z79.82 Long term (current) use of aspirin; Z79.1 Long term (current) use of non-steroidal anti-inflammatories (NSAID); Z79.899 Other long term (current) drug therapy
CPT/HCPCS: 36415; 71045; 80053; 85025; 99283